=== PATIENT | female | born 1985 | race Asian ===

== ENCOUNTER 2017-03-04 11:12 | Inpatient (IN) | payer SELFPAY ==
[2017-03-03 12:07] LABS: BILIRUBIN,URINE NEGATIVE (NEGATIVE); BLOOD, URINE NEGATIVE (NEGATIVE); CLARITY/URINE CLEAR (CLEAR); COLOR,URINE YELLOW (YELLOW); GLUCOSE,URINE TRACE (NEGATIVE); KETONES,URINE NEGATIVE (NEGATIVE); PROTEIN URINE NEGATIVE (NEGATIVE)
[2017-03-03 12:08] LABS: LEUKOCYTE ESTERASE ,URINE NEGATIVE (NEGATIVE); NITRITE, URINE NEGATIVE (NEGATIVE); UROBILINOGEN,URINE 0.2 (0.2-1.0)
[2017-03-03 12:12] LABS: BASOPHILS % (AUTO) 0.4 % (0.0-2.0); EOSINOPHILS # (AUTO) 0.1 K/uL (0.0-0.4); EOSINOPHILS % (AUTO) 1.5 % (0.0-4.0); HEMATOCRIT 35.6 % (36-48); HEMOGLOBIN 12.2 g/dL (12.0-16.0); LYMPHOCYTES # (AUTO) 1.2 K/uL (1.0-5.5); LYMPHOCYTES % (AUTO) 14.7 % (20.5-51.5); MEAN CORPUSCULAR HEMOGLOBIN 31 pg (27-31); MEAN CORPUSCULAR HGB CONC 34 % (32-36); MEAN CORPUSCULAR VOLUME 91 fL (79.0-98.0); MONOCYTES # (AUTO) 0.8 K/uL (0.0-1.0); MONOCYTES % (AUTO) 9.3 % (1.7-9.3); NEUTROPHILS # (AUTO) 6.3 K/uL (1.8-7.7); NEUTROPHILS % (AUTO) 74.1 % (40.0-70.0); PLATELET COUNT (AUTO) 205 K/uL (130-430); RED BLOOD CELL COUNT(AUTO) 3.93 MIL/uL (4.2-6.2); RED CELL DISTRIBUTION WIDTH 12.5 % (9.0-15.0); WHITE BLOOD COUNT (AUTO) 8.4 K/uL (4.8-10.8)
[~2017-03-04] VITALS: Ht 167 cm; Wt 75.3 kg
[2017-03-04 12:06] VITALS: BP_SYST 103
[2017-03-04] MEDS ORDERED: LR 1,000 ML IV ONE (12:13)
[2017-03-04] MEDS ORDERED: CEFAZOLIN 2 GM IVPB PREMIX 50 ML IV ONE (12:15)
[2017-03-04] MEDS ORDERED: METHYLERGONOVINE MALEATE 0.2 MG/ML AMP IM ONE ×2 (13:30→14:09)
[2017-03-04] MEDS ORDERED: LR 1,000 ML IV.SOLN IV ONE ×2 (13:30→14:09)
[2017-03-04] MEDS ORDERED: NS IRRIG SOLN 1000 ML IR ONE ×2 (13:30→14:09)
[2017-03-04] MEDS ORDERED: ONDANSETRON HCL 4 MG/2 ML VIAL IVP ONE ×2 (13:30→14:09)
[2017-03-04] MEDS ORDERED: OXYTOCIN 10 UNIT/ML VIAL IV ONE ×2 (13:30→14:09)
[2017-03-04] MEDS ORDERED: MIDAZOLAM HCL 5 MG/5 ML VIAL IVP ONE (13:30)
[2017-03-04] MEDS ORDERED: MORPHINE SULFATE 10MG/10ML PF AMP EP ONE (14:09)
[2017-03-04] MEDS ORDERED: MIDAZOLAM HCL 5 MG/ML VIAL (VERSED) IV ONE (14:09)
[2017-03-04] MEDS ORDERED: LR 1,000 ML IV SCH ×2 (14:11→14:38)
[2017-03-04] MEDS ORDERED: KETOROLAC TROMETHAMINE 60 MG/2 ML VIAL IM PRN (14:15)
[2017-03-04] MEDS ORDERED: METOCLOPRAMIDE HCL 10 MG/2 ML VIAL IVP PRN (14:15)
[2017-03-04] MEDS ORDERED: MORPHINE SULFATE 10MG/10ML PF AMP SP SCH (14:15)
[2017-03-04] MEDS ORDERED: DIPHENHYDRAMINE INJ 50 MG/ML VIAL IM PRN (14:15)
[2017-03-04] MEDS ORDERED: ONDANSETRON HCL 4 MG/2 ML VIAL IVP PRN (14:15)
[2017-03-04] MEDS ORDERED: NALOXONE HCL 0.4 MG/ML AMP (NARCAN) IVP PRN (14:15)
[2017-03-04] MEDS ORDERED: OXYTOCIN/NORMAL SALINE 1,000 ML IV ONE ×2 (14:38→14:40)
[2017-03-04] MEDS ORDERED: MEASLES,MUMPS&RUBELLA VACC/PF 12500 UNIT/0.5 ML VIAL SUBQ PRN (14:45)
[2017-03-04] MEDS ORDERED: ACETAMINOPHEN 325 MG TABLET PO PRN (14:45)
[2017-03-04] MEDS ORDERED: SIMETHICONE 80 MG TAB.CHEW PO PRN (14:45)
[2017-03-04] MEDS ORDERED: RHO(D) IMMUNE GLOBULIN/MALTOSE 1500 UNITS/1.3 ML (WINHRO) IM PRN (14:45)
[2017-03-04] MEDS ORDERED: SENNOSIDES/DOCUSATE SODIUM 1 TAB TABLET(SENOKOT-S) PO PRN (14:45)
[2017-03-04] MEDS ORDERED: BISACODYL 10 MG/SUPPOSITORY RC PRN (14:45)
[2017-03-04] MEDS ORDERED: TEMAZEPAM 15 MG CAPSULE PO PRN (14:45)
[2017-03-04] MEDS ORDERED: ANUSOL 1 EA SUPP.RECT (PREPARATION H) RC PRN (14:45)
[2017-03-04] MEDS ORDERED: LANOLIN 7 GM OINT. TP PRN (14:45)
[2017-03-04] MEDS ORDERED: HYDROcodone/ACETAMIN 5-325 MG TAB (NORCO/ VICODIN) PO PRN ×2 (14:45)
[2017-03-04 14:58] VITALS: BP_SYST 98
[2017-03-05 06:57] LABS: EOSINOPHILS % (AUTO) 0.1 % (0.0-4.0); HEMATOCRIT 35.3 % (36-48); LYMPHOCYTES # (AUTO) 0.8 K/uL (1.0-5.5); LYMPHOCYTES % (AUTO) 5.1 % (20.5-51.5); MEAN CORPUSCULAR HEMOGLOBIN 32 pg (27-31); MEAN CORPUSCULAR HGB CONC 34 % (32-36); MEAN CORPUSCULAR VOLUME 93 fL (79.0-98.0); MONOCYTES # (AUTO) 0.7 K/uL (0.0-1.0); MONOCYTES % (AUTO) 4.3 % (1.7-9.3); NEUTROPHILS # (AUTO) 14.8 K/uL (1.8-7.7); PLATELET COUNT (AUTO) 226 K/uL (130-430); RED BLOOD CELL COUNT(AUTO) 3.81 MIL/uL (4.2-6.2); RED CELL DISTRIBUTION WIDTH 12.8 % (9.0-15.0)
[2017-03-05 09:06] LABS: NEUTROPHILS % (AUTO) 90.5 % (40.0-70.0); WHITE BLOOD COUNT (AUTO) 16.3 K/uL (4.8-10.8)
[2017-03-05] MEDS: IBUPROFEN 600 MG TABLET PO SCH ×2 (11:55→18:00)
[2017-03-05] MEDS: DOCUSATE SODIUM 100 MG CAPSULE PO PRN (13:07)
[2017-03-06] MEDS: IBUPROFEN 600 MG TABLET PO SCH ×3 (12:23→17:56)
[2017-03-06] MEDS: DOCUSATE SODIUM 100 MG CAPSULE PO PRN ×2 (23:13)
[2017-03-07] MEDS: IBUPROFEN 600 MG TABLET PO SCH ×2 (06:00→11:45)
== END 2017-03-07 14:10 | disposition home or self-care (01) | DRG 766 ==
LOC: SPU 11:12
PROVIDERS: ADMIT Obstetrics & Gynecology; ATTEND Obstetrics & Gynecology
PROC: 10D00Z1 Extraction of Products of Conception, Low, Open Approach (ICD-10-PCS; principal; 2017-03-04 13:30)
DX: O34.211 Maternal care for low transverse scar from previous cesarean delivery (principal); Z37.0 Single live birth; Z3A.40 40 weeks gestation of pregnancy
CPT/HCPCS: 36415; 81003; 85025; 86592; 86886; 86900; 86901; 94760; J0690; J2210; J2250; J2274; J2405; J2590; J7120